=== PATIENT | female | born 1995 | race Caucasian/White ===

== ENCOUNTER 2016-11-10 17:55 | Emergency (ER) | payer OTHER ==
[2016-11-10 18:03] VITALS: TEMP 98.4
--- NOTE | 2016-11-10 18:54 | EDPHY ---
General Narrative: CHIEF COMPLAINT: Left hand laceration HISTORY OF PRESENT ILLNESS: Patient complains of accidentally stabbing her left hand with a knife while trying to open a can of beans. This happened less than 90 minutes ago. Moderately to severely painful when trying to move it. Moderately painful at rest. It is in the left web space between the thumb and index finger. Moderate bleeding that has stopped with pressure. No pulsatile bleeding. Some numbness and tingling at the site. No difficulty bending or straightening the fingers or thumb. No injury elsewhere. No other associated complaints or modifying factors. TIME OF INJURY: Less than 90 minutes prior to arrival TETANUS STATUS: Up-to-date MEDICAL/SURGICAL/SOCIAL HISTORY: No medical diagnoses. No previous surgeries. She is currently a student at [employer] REVIEW OF SYSTEMS: Ten systems reviewed and are negative unless otherwise noted in the HPI EXAMINATION General Appearance: Alert, no distress Head: normocephalic, atraumatic Cardiovascular: Pulses normal throughout. Symmetric radial pulses 2+. Brisk cap refill Neurological: A&O, sensory symmetric, strength symmetric good strength of the thumb and interossei. No wrist drop. Skin: Warm and dry, no rash. 2 cm laceration on the left hand, dorsal lateral between the thumb and index finger. There is exposure of the adductor muscle. There is no foreign body. Neurovascular intact distally Extremities: Tender over the area laceration. Full flexion extension of the fingers and thumb of the left hand. Neurovascular intact distal to the area of injury. DIFFERENTIAL DIAGNOSES: Including but not limited to laceration, complex laceration, laceration with tendon injury, laceration with muscle body injury MDM: 6:45 p.m. Complex laceration of the left hand between the thumb and index finger. She is neurovascular intact with no difficulty bending or straightening the fingers or thumb. There is exposure of the left adductor muscle of the hand. No foreign body. No pulsatile flow. Area has been anesthetized. Proceed with irrigation and closure. X-ray not indicated. 7:15 p.m. Complicated hand laceration has been repaired. She has full flexion extension, full abduction abduction, opposition of the thumb. Tolerated well. Wound care discussed. Discharged home in stable condition, neurovascular intact. PROCEDURE: Laceration repair Consent: Verbal Location: Left hand, dorsal lateral between the thumb and index finger Length of repair: 2 cm Complexity: Complex due to full-thickness laceration Layer involvement: Full-thickness Anesthesia: Local. 1% lidocaine without epinephrine. 7 mLs Irrigation: Extensive Debridement: None Procedure description: Following good anesthesia, the wound was copiously irrigated. Wound bed was explored and there is no foreign body noted. There is exposure of the adductor muscle. No foreign body. Wound borders were approximated well with good hemostasis. Tolerated well without complication. Suture/Staple material: Fascia: 5-0 Vicryl, 1 simple interrupted suture. Cutaneous layer: 5-0 Ethilon, 3 simple interrupted sutures Wound care: Routine as discussed Suture/Staple removal: 10 Days ED Precautions: Worsening pain. Erythema, edema, cyanosis, pallor, paresthesia or anesthesia. - History Smoking Status: Never smoked - Objective Vital Signs: Initial Vital Signs Temperature (C) 98.4 F 11/10/16 18:00 Heart Rate 114 H 11/10/16 18:00 Respiratory Rate 17 11/10/16 18:00 Blood Pressure 131/95 H 11/10/16 18:00 O2 Sat (%) 99 11/10/16 18:00 O2 Delivery Mode Room Air Allergies/Adverse Reactions: No Known Allergies Allergy (Unverified 11/10/16 18:00) Home Medications: Medication Instructions Recorded Cephalexin [Keflex (*)] 500 mg PO QID #36 cap 11/10/16 Ruby 28 Day Tablet 11/10/16 Departure - Departure Disposition: Home, Routine, Self-Care Clinical Impression: Laceration of hand, left, complicated Qualifiers: Encounter type: initial encounter Qualified Code(s): S61.412A - Laceration without foreign body of left hand, initial encounter Condition: Good Instructions: Care For Your Stitches (ED), Laceration (ED) Additional Instructions: 1. Keep the dressing in place for 2 days while keeping it clean and dry 2. Removed the dressing in 2 days and apply a thin layer of bacitracin and covered with a large Band-Aid 3. Do not allow the hand to come in contact with bathtub water, shower water for 3 days 4. Do not allow the hand to come in contact with swimming pool or hot tub until sutures are removed 5. Antibiotics as prescribed for prophylaxis 6. ED precautions as discussed 7. Return to ED in 10 days for suture removal Referrals: NONE *PRIMARY CARE P,. [Primary Care Provider] - As per Instructions Benton Muniz MD [Medical Doctor] - As per Instructions Prescriptions: Cephalexin [Keflex (*)] 500 mg PO QID #36 cap
[2016-11-10] MEDS ORDERED: CEPHALEXIN 500MG PREPACK#4 BTL TAKEHOME ONE (19:16)
[2016-11-10 20:00] VITALS: BP 104/75; PULSE 81; RESP 16; O2SAT 97
== END 2016-11-10 19:30 | disposition home or self-care (01) ==
PROC: 0HQGXZZ Repair Left Hand Skin, External Approach (ICD-10-PCS; principal; 2016-11-10)
DX: S61.412A Laceration without foreign body of left hand, initial encounter (principal); W26.0XXA Contact with knife, initial encounter

== ENCOUNTER 2018-07-18 21:45 | Emergency (ER) | payer OTHER | END 2018-07-19 00:08 | disposition home or self-care (01) ==